=== PATIENT | female | born 1975 | race Caucasian/White ===

== ENCOUNTER 2017-07-20 17:06 | Inpatient (IN) | payer MEDICAID ==
--- NOTE | 2017-07-20 17:48 | CPEKG ---
Heart Rate: 81 RR Interval: 741 P-R Interval: 148 QRSD Interval: 80 QT Interval: 368 QTC Interval: 428 P [place]: 48 QRS [place]: 35 T Wave [place]: 35 EKG Severity - NORMAL ECG - EKG Impression: SINUS RHYTHM Electronically Signed By: Willow Barnett 20-Jul-2017 21:26:04
[2017-07-20 18:03] LABS: PLATELET COUNT 295 10^3/uL (150-400)
--- NOTE | 2017-07-20 18:11 | EDPHY ---
H & P Stated Complaint: L arm tingling Time Seen by Provider: 07/20/17 17:31 HPI/ROS: CHIEF COMPLAINT: Left-sided numbness Limitations: history through ; pt unable to recall recent events HISTORY OF PRESENT ILLNESS: 42-year-old female with recent cerebral aneurysm repair presents with left-sided numbness. 2 months ago she presented with a generalized seizure and elevated BP 219/116 during 3rd trimester of , thought secondary to eclampsia. She had emergency . Afterward C- section, CT scan of the brain demonstrated subarachnoid hemorrhage and she was diagnosed with a cerebral aneurysm. She underwent operative repair and coiling. She was in a coma for 4-5 weeks after the surgery, according to her . She just came home from [facility] 2 days ago. She has ongoing ataxia and difficulty speaking. Today, she mentioned to her that she had left-sided arm tingling. She was sent to the emergency department for evaluation by her neurosurgery team. She now complains of tingling in her left arm and left leg. She does not know when the symptoms started. No other neuro sx. Denies headache or neck pain. REVIEW OF SYSTEMS: complete 10 point ROS negative except at noted in the HPI - Personal History LMP (Females 10-55): Unknown Current Tetanus/Diphtheria Vaccine: Yes Current Tetanus Diphtheria and Acellular Pertussis (TDAP): Yes - Medical/Surgical History Hx Asthma: No Hx Chronic Respiratory Disease: No Hx Diabetes: No Hx Cardiac Disease: No Hx Renal Disease: No Hx Cirrhosis: No Hx Alcoholism: No Hx HIV/AIDS: No Hx Splenectomy or Spleen Trauma: No Other PMH: Subarachnoid hemorrhage. - Social History Smoking Status: Current every day smoker Drug Use: Other (Methamphetamine abuse) Additional Social History: - Physical Exam Exam: General Appearance: Alert, pleasant Eyes: Pupils equal and round, no conjunctival pallor or injection ENT, Mouth: Mucous membranes moist Neck: Normal inspection Respiratory: Lungs are clear to auscultation Cardiovascular: Regular rate and rhythm Gastrointestinal: Abdomen is soft and nontender, areas of ecchymosis on the lower abdomen Neurological: Alert, oriented, cranial nerves II through XII intact, motor 5/5 , decreased sensation to light touch of the entire left upper extremity except the hand and the left lower extremity, gait not assessed Skin: Warm and dry Extremities: Normal inspection Psychiatric: Tangential thought process Constitutional: Initial Vital Signs Temperature (C) 36.5 C 07/20/17 17:13 Heart Rate 84 07/20/17 17:13 Respiratory Rate 16 07/20/17 17:13 Blood Pressure 122/84 H 07/20/17 17:13 O2 Sat (%) 99 07/20/17 17:13 O2 Delivery Mode Room Air Allergies/Adverse Reactions: No Known Allergies Allergy (Unverified 07/20/17 17:12) Home Medications: Medication Instructions Recorded Acetaminophen [Tylenol 325mg (*)] 650 mg PO Q4H PRN 07/20/17 Amantadine HCl [Amantadine] 100 mg PO BID@06,12 07/20/17 Aspirin EC [Aspirin EC 81 mg (*)] 81 mg PO DAILY 07/20/17 Atorvastatin Calcium [Lipitor 40 40 mg PO DAILY 07/20/17 mg (*)] Clopidogrel Bisulfate [Plavix (*)] 37.5 mg PO EVERY OTHER DAY 07/20/17 Docusate Sodium [Colace 100 MG (*)] 100 mg PO TID 07/20/17 Insulin Detemir [Levemir Flextouch] 20 unit SQ DAILY 07/20/17 Lacosamide [Vimpat 50 mg (*)] 50 mg PO BID 07/20/17 Melatonin [Melatonin 3 MG (*)] 3 mg PO HS 07/20/17 Nicotine [Nicoderm Cq 21 mg (*)] 21 mg TD DAILY 07/20/17 Propranolol HCl [Inderal 10mg (*)] 10 mg PO TID 07/20/17 QUEtiapine FUMARATE [Seroquel 100 100 mg PO BID 07/20/17 mg (*)] cloNIDine HCL [Clonidine HCl] 0.3 mg PO BID 07/20/17 glipiZIDE [Glipizide] 5 mg PO BIDMEAL 07/20/17 oxyCODONE IR [Oxycodone Ir (*)] 5 mg PO Q12H PRN 07/20/17 traZODone [traZODone 150MG (*)] 150 mg PO HS 07/20/17 Medical Decision Making - Diagnostics Imaging Results: Head CT 07/20/17 17:33 Impression: 1. Mild ventriculomegaly, of uncertain chronicity. If previous imaging can be made available, I would be happy to compare it. 2. Right frontal encephalomalacia, likely related to previous ventriculostomy catheter but nonspecific. 3. Aneurysm coils in the region of the basilar artery. Findings discussed with Willow Barnett M.D., on July 20, 2017 at 1914. Head CTA 07/20/17 18:12 Impression: 1. No acute vascular findings. 2. Additional findings as above. Stenoses are calculated using [place] Symptomatic Carotid Endarterectomy Trial (NASCET) criteria. Findings discussed with Dr. Willow Barnett on July 20, 2017 at 1914 hours. ED Course/Re-evaluation: This patient presents with left-sided numbness after recent cerebral aneurysm repair, concerning for CVA. On aspirin and Plavix. She is not a tPA candidate because of recent intracranial surgery. CT/CTA scan of the brain ordered. Old records ordered from [facility]. CT/CTA unremarkable, results discussed with the patient and her . Serial neuro exams unchanged. Medical records from [facility] reviewed. Dr. Pearce patient's neurosurgeon at [facility] paged. d/w Dr. Islas, suggests MRI. Will admit for observation overnight. Hospitalist service consulted for admission. d/w radiologist, unclear if MRI ok, given intracranial clips/coils. Pt seen by Dr. Jose, neuro sx resolved, will obs for now, consider MRI in am. This pt utilized 35 minutes of critical care time exclusive of unbundled procedures. Time spent in direct patient care, reassessments, consultations, interpretation/review of labs/radiologic studies. Organ at risk: brain Differential Diagnosis: Altered mental status including but not limited to hypoglycemia, infectious process, electrolyte abnormality, head injury, CVA, and intoxicants. - Data Points Laboratory Results: Laboratory Results 07/20/17 17:52 07/20/17 17:52 Medications Given: Discontinued Medications Acetaminophen (Tylenol) 650 mg PO Q4HRS PRN PRN Reason: Pain, Mild/Fever, Can Take PO Stop: 01/16/18 20:54 Last Admin: 07/21/17 16:57 Dose: 650 mg Al Hydroxide/Mg Hydroxide (Maalox Susp) 30 ml PO ONCE ONE Stop: 07/20/17 20:17 Last Admin: 07/20/17 20:22 Dose: 30 ml Amantadine HCl (Symmetrel) 100 mg PO BID@06,12 [facility] Stop: 01/17/18 05:59 Last Admin: 07/22/17 05:46 Dose: 100 mg Aspirin Buffered (Aspirin Ec) 81 mg PO DAILY [facility] Stop: 01/17/18 08:59 Last Admin: 07/22/17 09:14 Dose: 81 mg Atorvastatin Calcium (Lipitor) 40 mg PO DAILY [facility] Stop: 01/17/18 08:59 Last Admin: 07/22/17 09:14 Dose: 40 mg Calcium Carbonate (Tums) 500 mg PO EDNOW ONE Stop: 07/20/17 19:51 Last Admin: 07/20/17 19:57 Dose: 500 mg Clonidine (Catapres) 0.3 mg PO BID [facility] Stop: 01/17/18 08:59 Last Admin: 07/22/17 09:14 Dose: 0.3 mg Clopidogrel Bisulfate (Plavix) 37.5 mg PO EVERY OTHER DAY [facility] Stop: 01/18/18 08:59 Last Admin: 07/22/17 09:13 Dose: 37.5 mg Docusate Sodium (Colace) 100 mg PO TID [facility] Stop: 01/16/18 21:59 Last Admin: 07/22/17 09:15 Dose: 100 mg Glipizide (Glucotrol) 5 mg PO BIDMEAL [facility] Stop: 01/17/18 17:59 Last Admin: 07/22/17 09:14 Dose: 5 mg Hyoscyamine Sulfate (Levsin, Hyomax-Sl) 0.25 mg PO ONCE ONE Stop: 07/20/17 20:17 Last Admin: 07/20/17 20:21 Dose: 0.25 mg Insulin Human Lispro (Humalog Lispro) 0 unit SC TIDMEAL [facility] PRN Reason: Protocol Stop: 01/17/18 07:59 Last Admin: 07/22/17 09:22 Dose: Not Given Lacosamide (Vimpat) 50 mg PO BID [facility] Stop: 01/16/18 21:29 Last Admin: 07/22/17 09:15 Dose: 50 mg Lidocaine (Lidocaine 2% Viscous) 15 ml PO ONCE ONE Stop: 07/20/17 20:17 Last Admin: 07/20/17 20:22 Dose: 15 ml Melatonin (Melatonin) 3 mg PO HS [facility] Stop: 01/16/18 20:59 Last Admin: 07/21/17 21:49 Dose: 3 mg Miscellaneous Medication (Insulin Detemir [Levemir Flextouch]) 20 unit SC DAILY [facility] Stop: 01/17/18 08:59 Last Admin: 07/22/17 09:20 Dose: 20 unit Nicotine (Nicoderm Cq) 21 mg TD DAILY [facility] Stop: 01/17/18 08:59 Last Admin: 07/22/17 09:15 Dose: 21 mg Ondansetron HCl (Zofran Odt) 4 mg PO EDNOW ONE Stop: 07/20/17 19:52 Last Admin: 07/20/17 22:51 Dose: Not Given Oxycodone HCl (Oxycodone Ir) 5 mg PO Q12H PRN PRN Reason: Pain, Breakthrough Stop: 07/30/17 21:15 Last Admin: 07/22/17 09:40 Dose: 5 mg Polyethylene Glycol (Miralax) 17 gm PO DAILY PRN; Protocol PRN Reason: Constipation Stop: 01/18/18 08:20 Last Admin: 07/22/17 09:40 Dose: 17 gm Propranolol HCl (Inderal) 10 mg PO TID [facility] Stop: 01/16/18 21:59 Last Admin: 07/22/17 09:14 Dose: 10 mg Quetiapine Fumarate (Seroquel) 100 mg PO BID [facility] Stop: 01/17/18 08:59 Last Admin: 07/22/17 09:14 Dose: 100 mg Senna/Docusate Sodium (Senokot-S) 1 - 2 tab PO BID [facility] PRN Reason: Protocol Stop: 01/18/18 08:59 Last Admin: 07/22/17 09:39 Dose: 2 tab Trazodone HCl (Trazodone) 150 mg PO HS [facility] Stop: 01/16/18 20:59 Last Admin: 07/21/17 21:48 Dose: 150 mg Departure - Departure Disposition: Home, Routine, Self-Care Clinical Impression: Left sided numbness Condition: Good
[2017-07-20] MEDS ORDERED: IOPAMIDOL (ISOVUE 370) 100 ML BTL IV ONE (18:30)
[2017-07-20] MEDS ORDERED: CALCIUM CARBONATE 500 MG CHEWABLE TAB PO ONE ×2 (19:46→19:50)
[2017-07-20] MEDS ORDERED: ONDANSETRON DISINTEGRATING 4 MG TAB PO ONE (19:51)
[2017-07-20] MEDS ORDERED: MAG HYDROX/AL HYDROX/SIMETH 30 ML UDCUP PO ONE (20:16)
[2017-07-20] MEDS ORDERED: LIDOCAINE 2% VISCOUS 15 ML UDCUP PO ONE (20:16)
[2017-07-20] MEDS ORDERED: HYOSCYAMINE SULFATE 0.125 MG TAB PO ONE (20:16)
[2017-07-20] MEDS ORDERED: ONDANSETRON 4 MG/2 ML VIAL IVP PRN (20:55)
[2017-07-20] MEDS ORDERED: ONDANSETRON DISINTEGRATING 4 MG TAB PO PRN (20:55)
[2017-07-20] MEDS ORDERED: D50W 25 GM/50 ML SYR IVP PRN (21:16)
--- NOTE | 2017-07-20 21:52 | GHP ---
[f rep st] HISTORY AND PHYSICAL DATE OF ADMISSION: 07/20/2017 CHIEF COMPLAINT: Left-sided numbness. HISTORY OF PRESENT ILLNESS: This is a 42-year-old female, with a very complicated recent past medica l history, who presents with left-sided numbness. History from her is very inconsistent and difficul t. Her has been present and provides somewhat of a better history. When I am seeing her, tammy harpreet did not initially remember complaining of numbness, though that was her chief complaint to the ED. She tells me that she has some left eye vision problems that started yesterday. In reviewing her re cords, these problems have been persistent for some time, recommendation had been to see an ophthalmo logist. Her history began in May of this year. She was , was found to have tonic-clonic seizure at home and she was combative. The assumption was that she had eclampsia, thus she underwent an emerge nt . After her , she was taken to CT scanner, which showed extensive subarachnoid hemorrhage throughout both cerebral hemispheres and cisterns with hydrocephalus. At that point, she was transferred to the [facility]. She was hospitalized there for approximately 2 months . 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 This was embolized u sing a PulseRider device and coils on 05/20/2017. They recommended aspirin 81 mg for life and Plavix 37.5 mg every other day for about 6 months. Her course was complicated by significant encephalopath y as well as delirium. She had a questionable history of bipolar disorder. This had improved though , discharge summary notes that most of her statements are confabulations. She had been treated for h igh blood pressure as well. Her goal is 90-160. She had been placed on Vimpat. Recommendation was to follow up with Neurology as an outpatient. Notably, her EEG had shown no epileptiform discharges. During her hospitalization, she had a trach and PEG placed. These have been removed and she had be en on a regular diet since 07/04. She did have hydrocephalus as well as cerebral edema and she requi red a CSF diversion with a ventriculostomy. She was discharged 2 days prior to her presentation here to home with home care. PAST MEDICAL/SURGICAL HISTORY: 1. 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 2. Hypertension. 3. Seizure disorder. 4. Diabetes mellitus. 5. History of a trach and PEG, now removed. 6. Tobacco abuse. 7. Polycystic ovarian syndrome. 8. Hydrocephalus and cerebral edema. 9. Cerebral vasospasm. 10. Reported heart block early in her ICU stay. 11. Encephalopathy with history of bipolar disorder. MEDICATIONS: Please see medication reconciliation. ALLERGIES: No known drug allergies. FAMILY HISTORY: Reviewed and noncontributory. SOCIAL HISTORY: She is . She is accompanied by her . REVIEW OF SYSTEMS: A 10-point review of systems is conducted and is negative, except per HPI. PHYSICAL EXAMINATION: VITAL SIGNS: Blood pressure 101/67, heart rate 76, respiration rate 15, satur ating 99% on room air. Temperature 36.5. GENERAL: The patient is a pleasant female, who appears so mewhat anxious, sitting in her room. HEENT: Multiple scalp incisions. She has some sutures. Much of her hair has been removed. CARDIOVASCULAR: A regular rate and rhythm. No murmurs, rubs, or gall ops. PULMONARY: Lungs clear to auscultation bilaterally. ABDOMEN: Soft, nontender, nondistended. SKIN: No rash. : No Jackson. NEUROLOGIC: Probably alert and oriented x3, though she clearly has some difficulty with recent history. Cranial nerves 2-12 appear to be intact, though she is complai yeny of some subjective blurriness in her left eye. Motor is intact in her upper and lower extremiti es. Sensation to light touch is intact in her upper and lower extremities. PSYCHIATRIC: Mildly anx ious-appearing. LABORATORY: CBC is normal. Basic metabolic panel is normal. Troponin is negative. DATA: 1. I discussed this with Dr. Barnett. Will admit to med/surg on the neurologic floor. 2. I reviewed her head and neck CT angiogram. These both showed no acute vascular findings. 3. I reviewed her head CT scan. This shows mild ventriculomegaly, right frontal encephalomalacia, a nd aneurysm coils in the region of the basilar artery. 4. EKG, which I personally viewed and interpreted, shows sinus rhythm. IMPRESSION AND PLAN: 1. Neurologic complaints: Her initial complaint of left-sided numbness seems to have resolved. She complains of some left eye vision problems, which are reported in her prolonged stay at the [facility], unclear what to make of these. Could consider an Ophthalmology evaluation. Unclear if this need s to happen as an inpatient. Agree with MRI; however, we are unable to determine whether her coils a re MRI compatible at this time. We will need to speak with her Neurosurgery team tomorrow to further delineate. Apparently, the neurosurgeon on-call at the [place] tomorrow is the one who personall y performed the procedure. The Neurosurgery number is [phone]. I placed a neurology consult as well. Consider stroke versus seizure activity. She is clearly not a tPA candidate given recent sub arachnoid hemorrhage. Will defer to Neurology on additional workup. Overall, history is very diffic ult to gather and seems somewhat unreliable. 2. Seizure disorder: Continue her Vimpat when this is reconciled. 3. Encephalopathy: She had been started on trazodone and amantadine to normalize her sleep-wake cyc le. Will continue these. 4. Hypertension: Will continue her propranolol with a goal systolic blood pressure of 90-160. 5. Diabetes mellitus: Will continue her home insulin and provide her with sliding scale insulin. /[id number]/MODL
[2017-07-20] MEDS: MELATONIN 3 MG TAB PO SCH (23:42)
[2017-07-20] MEDS: oxyCODONE IR 5 MG TAB PO PRN (23:43)
[2017-07-20] MEDS: PROPRANOLOL HCL 10 MG TAB PO SCH (23:46)
[2017-07-20] MEDS: DOCUSATE SODIUM 100 MG CAP PO SCH (23:46)
[2017-07-20] MEDS: LACOSAMIDE 50 MG TAB PO SCH (23:46)
[2017-07-21 05:30] LABS: PLATELET COUNT 337 10^3/uL (150-400)
[2017-07-21] MEDS: AMANTADINE HCL 100 MG CAP PO SCH ×2 (05:48→12:34)
[2017-07-21] MEDS: ACETAMINOPHEN 325 MG TAB PO PRN ×2 (06:20→16:57)
[2017-07-21] MEDS: ATORVASTATIN CALCIUM 40 MG TAB PO SCH (08:35)
[2017-07-21] MEDS: QUEtiapine FUMARATE 100 MG TAB PO SCH ×2 (08:35→21:22)
[2017-07-21] MEDS: PROPRANOLOL HCL 10 MG TAB PO SCH ×3 (08:35→21:24)
[2017-07-21] MEDS: oxyCODONE IR 5 MG TAB PO PRN ×2 (08:36→21:48)
[2017-07-21] MEDS: ASPIRIN EC 81 MG TAB PO SCH (08:36)
[2017-07-21] MEDS: DOCUSATE SODIUM 100 MG CAP PO SCH ×3 (08:36→21:22)
[2017-07-21] MEDS: INSULIN LISPRO 100 UNIT/ML SC SCH ×3 (08:37→17:08)
[2017-07-21] MEDS: NICOTINE 21 MG/24 HR PATCH TD SCH (08:38)
[2017-07-21] MEDS: LACOSAMIDE 50 MG TAB PO SCH ×2 (08:50→21:23)
[2017-07-21] MEDS ORDERED: CLONIDINE HCL 0.3 MG PO SCH (09:00)
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
--- NOTE | 2017-07-21 10:10 | ASMTCMCOM ---
CM Note CM Note Notes: Chart reviewed. 42 year old female admitted via ed with complaints of left arm numbness. Just dc'd to home from [place] after an emergency C- section for pre-eclampsia the discovered to have a ruptured cerebral aneurysm coil repair, coma, s/p tach, peg tube. Yesterday was her first [facility] visit and RN was concerned over complaints of arm numbness. Work up so far has been negative. Therapies pending. Referral placed to [facility] via [facility]scripts. Plan: likely home with resumption of HHC Date Signed: 07/21/2017 10:09 AM Electronically Signed By:Cheyenne Davis RN
--- NOTE | 2017-07-21 11:27 | HOSPPROG ---
Hospitalist Progress Note Assessment/Plan: * New left numb/weak -d/w Dr. Munguia at (neurosurgery) who knows her well and placed current device -it is MRI compatible - they never did MRI - he thinks MRI brain would be beneficial -re-call Dr. 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 part of her cognitive dysfunction syndrome * Hydrocephalus s/p ventric * Cerebral vasospasm - resolved * s/p trach/PEG - now removed * Tobacco dependence -nicotine patch * DM -insulin + glipizide * HTN -propranolol + clonidine Subjective: Left sided numb/tingling - new Objective: Vital Signs Temp Pulse Resp BP Pulse Ox 36.6 C 97 16 147/91 H 96 07/21/17 07:30 07/21/17 07:30 07/21/17 07:30 07/21/17 07:30 07/21/17 07:30 Laboratory Results 07/21/17 04:18 07/21/17 04:18 07/20/17 07/21/17 07/22/17 05:59 05:59 05:59 Intake Total 350 Balance 350 Case d/w Dr. Art and Dr. 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
--- NOTE | 2017-07-21 15:15 | PDMN ---
Medical Necessity Medical necessity: Change to IP, as of 07/21/17, per MD; los >2 mn for ongoing management of L-sided numbness/tingling/weakness & encephalopathy vs post- psychosis; admit for further workup/monitoring, Neuro consult & therapies ; hx basilar artery aneurysm s/p embolization/coil on AC, SAH, seizures, HTN, diabetes; per H&P & order 07/21/17
[2017-07-21] MEDS: glipiZIDE 5 MG TAB PO SCH (17:08)
[2017-07-21] MEDS ORDERED: MELATONIN 3 MG TAB PO SCH (21:00)
[2017-07-21] MEDS: MELATONIN 3 MG TAB PO SCH (21:49)
[2017-07-22] MEDS: AMANTADINE HCL 100 MG CAP PO SCH (05:46)
--- NOTE | 2017-07-22 08:17 | NEUROPROG ---
Assessment: At this point, the exact explanation for symptoms is uncertain. Total unit time of 15 min. The feeling is that she is safe for discharge. She already has an ophthalmology appointment for next week. She should follow up with her neurosurgeon and she should follow up with Neurology at the [facility] to keep her care consistent. Subjective: Patient reports that she is not having any more symptoms of numbness on the left side. She continues have the complaint of the left eye being blurred but this is going to be evaluated next week by Ophthalmology. Objective: Vital Signs Temp Pulse Resp BP Pulse Ox 36.8 C 74 17 98/61 L 96 07/22/17 04:00 07/22/17 04:00 07/22/17 04:00 07/22/17 04:00 07/22/17 04:00 Laboratory Results 07/21/17 04:18 07/21/17 04:18 07/21/17 07/22/17 07/23/17 05:59 05:59 05:59 Intake Total 350 1000 Balance 350 1000 I do not detect new focal weakness or numbness. She just woke up but is able to communicate effectively and seems about back to her baseline and her ' s feeling seems to be that she is about back to her baseline. Brain MRI did not show any evidence of an acute stroke. Allergies/Adverse Reactions: No Known Allergies Allergy (Unverified 07/20/17 17:12)
[2017-07-22] MEDS ORDERED: POLYETHYLENE GLYCOL 3350 17 GM PKT PO PRN (08:21)
[2017-07-22] MEDS ORDERED: BISACODYL 10 MG SUPP PR PRN (08:21)
[2017-07-22] MEDS ORDERED: LACTULOSE 20 GM/30 ML UDCUP PO PRN (08:21)
[2017-07-22] MEDS ORDERED: MAGNESIUM HYDROXIDE 30 ML UDCUP PO PRN (08:21)
[2017-07-22 08:24] VITALS: BP 117/85
[2017-07-22] MEDS ORDERED: SENNOSIDES/DOCUSATE SODIUM TAB PO SCH (09:00)
[2017-07-22] MEDS ORDERED: CLOPIDOGREL BISULFATE 75 MG TAB PO SCH (09:00)
[2017-07-22] MEDS: PROPRANOLOL HCL 10 MG TAB PO SCH (09:14)
[2017-07-22] MEDS: glipiZIDE 5 MG TAB PO SCH (09:14)
[2017-07-22] MEDS: QUEtiapine FUMARATE 100 MG TAB PO SCH (09:14)
[2017-07-22] MEDS: ATORVASTATIN CALCIUM 40 MG TAB PO SCH (09:14)
[2017-07-22] MEDS: ASPIRIN EC 81 MG TAB PO SCH (09:14)
[2017-07-22] MEDS: LACOSAMIDE 50 MG TAB PO SCH (09:15)
[2017-07-22] MEDS: NICOTINE 21 MG/24 HR PATCH TD SCH (09:15)
[2017-07-22] MEDS: DOCUSATE SODIUM 100 MG CAP PO SCH (09:15)
[2017-07-22] MEDS: INSULIN LISPRO 100 UNIT/ML SC SCH (09:22)
[2017-07-22] MEDS: oxyCODONE IR 5 MG TAB PO PRN (09:40)
--- NOTE | 2017-07-22 09:53 | PDIAF ---
- Diagnosis Diagnosis: left sided numbness Code Status: Full Code - Medication Management Discharge Medications: Medications to Continue on Transfer Acetaminophen [Tylenol 325mg (*)] 650 mg PO Q4H PRN 07/20/17 [Last Taken Unknown ] Amantadine HCl [Amantadine] 100 mg PO BID@06,12 07/20/17 [Last Taken 07/20/17] Aspirin EC [Aspirin EC 81 mg (*)] 81 mg PO DAILY 07/20/17 [Last Taken 07/20/17] Atorvastatin Calcium [Lipitor 40 mg (*)] 40 mg PO DAILY 07/20/17 [Last Taken 12/28] Clopidogrel Bisulfate [Plavix (*)] 37.5 mg PO EVERY OTHER DAY 07/20/17 [Last Taken 07/20/17] Docusate Sodium [Colace 100 MG (*)] 100 mg PO TID 07/20/17 [Last Taken 07/20/17] Insulin Detemir [Levemir Flextouch] 20 unit SQ DAILY 07/20/17 [Last Taken ] Lacosamide [Vimpat 50 mg (*)] 50 mg PO BID 07/20/17 [Last Taken 07/20/17] Melatonin [Melatonin 3 MG (*)] 3 mg PO HS 07/20/17 [Last Taken 07/19/17] Nicotine [Nicoderm Cq 21 mg (*)] 21 mg TD DAILY 07/20/17 [Last Taken 07/19/17] Propranolol HCl [Inderal 10mg (*)] 10 mg PO TID 07/20/17 [Last Taken 07/20/17] QUEtiapine FUMARATE [Seroquel 100 mg (*)] 100 mg PO BID 07/20/17 [Last Taken 12/28] cloNIDine HCL [Clonidine HCl] 0.3 mg PO BID 07/20/17 [Last Taken 07/20/17] glipiZIDE [Glipizide] 5 mg PO BIDMEAL 07/20/17 [Last Taken 07/20/17] oxyCODONE IR [Oxycodone Ir (*)] 5 mg PO Q12H PRN 07/20/17 [Last Taken 07/19/17] traZODone [traZODone 150MG (*)] 150 mg PO HS 07/20/17 [Last Taken 07/19/17] Discharge Medications: Refer to the Discharge Home Medication list for PRN reason. - Orders Services needed: Home Care, Physical Therapy, Occupational Therapy, Speech Language Pathologist Home Care Face to Face: I certify that this patient was under my care and that I had the required [id number] encounter meeting the encounter requirements on the discharge day. My findings support the fact that the patient is homebound as defined in Home Care Face to Face Continued: CMS Chapter 7 Medicare Benefits Manual 30.1.1 , The condition of the patient is such that there exists a normal inability to leave home and consequently, leaving home would require a considerable and taxing effort. Diet Recommendation: no restrictions on diet - Follow Up Care Current Providers and Referrals: Toni Nieves MD [Primary Care Provider] - As per Instructions
--- NOTE | 2017-07-22 10:24 | GDS ---
[f rep st] DISCHARGE SUMMARY DISCHARGE DIAGNOSIS: 1. New left-sided numbness and weakness of unclear etiology. 2. Basal artery aneurysm status post embolization and coil. 3. Subarachnoid hemorrhage due to aneurysm rupture. 4. Seizure. 5. Vision change. 6. Cognitive dysfunction. 7. Encephalopathy versus psychosis. 8. Confabulation. 9. Hydrocephalus status post ventriculostomy. 10. Cerebral vasospasm, resolved. 11. Status post trach and percutaneous endoscopic gastrostomy. 12. Tobacco dependence. 13. Diabetes. 14. Hypertension. HISTORY: This is a 42-year-old female who unfortunately ruptured a brain aneurysm while she was preg nant and delivered her child successfully. However, subsequently had a 2 month hospitalization at [facility] where she had a coil embolization of a basilar artery aneurysm as well as prolonged recovery from a subarachnoid hemorrhage developing a seizure disorder, vision change, cognitive dysfu nction, confabulation, psychosis, encephalopathy, hydrocephalus requiring ventriculostomy, cerebral vasospasm, and a trach and PEG that have both been removed. She was discharged from [facility] to home health, and the home health nurse came out and thought the patient complained o f a new left-sided numbness and weakness and she was sent immediately back to the emergency room. The patient is quite confabulatory at baseline and has very poor short-term memory, so it was very di fficult to get a history regarding this left-sided numbness and weakness. Upon arriving to the [facility], she no longer had this complaint. It was unclear what her baseline was. She seemed to be quite s uggestible and once we asked her specifically about a left-sided numbness and weakness, then she woul d confabulate an entire history regarding this. She was seen in consultation with Neurology. I spoke with Dr. Pearce who is her neurosurgeon at [facility], who knows her very well. He is e neurosurgeon in charge of her care and all of the devices in her brain are MRI compatible. She nev er had an MRI at [facility]. He did think that would be beneficial. We pursued MRI of the b rain last evening and nothing acute was found. She has an outpatient ophthalmology appointment sched ed for her vision changes which were present during her hospitalization at [facility]. Th ere was no new bleeding. She had a CT angiogram of the head and neck which showed patency of all ves sels and she will continue on aspirin and Plavix. We will continue Speech Therapy. Occupational The rapy and Physical Therapy with Home Health upon discharge. She remains on a high dose of Seroquel, however, per psychiatry notes from [facility] the y did not think she had bipolar and instead think there is an element of psychosis versus encephalopathy due to her aneurysm rupture. They eventually want antipsychotics weaned off. She is stable on her current dose and this will be an outpatient project with her outpatient providers. DISCHARGE MEDICATIONS: Please see computerized record for full detailed list. New medications: None. DISCHARGE INSTRUCTIONS: 1. Follow up with primary care. 2. Follow up with Neurosurgery at [facility]. 3. Greater than 30 minutes' time was spent arranging this discharge. Patient seen and examined by me on the day of discharge. /[id number]/MODL
--- NOTE | 2017-07-26 13:41 | ASDISCHSUM ---
Discharge Information Plan Status: Medically Cleared to Leave: Discharge Date:07/22/2017 11:34 AM CM D/C Disposition: ADT D/C Disposition:Home Health Service Projected Discharge Date:07/21/2017 11:00 AM Transportation at D/C: Discharge Delay Reason: Follow-Up Date:07/21/2017 11:00 AM Discharge Slot: Final Diagnosis: Placement Information Referral Type:*Home Health Care Services Referral ID:[id number] Provider Name:[facility] Address 1:[address] Phone Number: Address 2: Fax Number: [facility]:Jessica Selection Factors: State:[place] Patient Contact Information Contact Name:ROSITA Relationship: Address:[address] Work Phone: [facility]: [facility]/Zip Code:[place] [address] Email: Financial Information Financial Class:Medicaid Primary Plan Desc:MEDICAID HEALTH [employer] Primary Plan Number:[id number] Secondary Plan Desc: Secondary Plan Number: Assessment Information [employer] CM Progress Note CM Note CM Note Notes: Chart reviewed. 42 year old female admitted via ed with complaints of left arm numbness. Just dc'd to home from [place] after an emergency C- section for pre-eclampsia the discovered to have a ruptured cerebral aneurysm coil repair, coma, s/p tach, peg tube. Yesterday was her first [facility] visit and RN was concerned over complaints of arm numbness. Work up so far has been negative. Therapies pending. [facility] Plan: likely home with resumption of [facility] Date Signed: 07/21/2017 10:09 AM Electronically Signed By:Cheyenne Davis RN Case Management Discharge Plan Note Case Management Discharge Discharge Order Complete? Answers: Yes Patient to Obtain Answers: Independently Medications Transportation Arranged Answers: Family/Friends Faxed Final Orders Answers: Yes Discharge Comments Notes: Final orders faxed. [facility] notified. Date Signed: 07/22/2017 10:15 AM Electronically Signed By:Ngozi Henriquez LCSW Intervention Information
== END 2017-07-22 11:34 | disposition home health service (06) | DRG 58 ==
LOC: OBSVTOIN 20:55 → F3N 22:00
PROVIDERS: ADMIT Student in an Organized Health Care Education/Training Program; ATTEND Student in an Organized Health Care Education/Training Program
DX: R20.0 Anesthesia of skin (principal); G93.40 Encephalopathy, unspecified; M62.81 Muscle weakness (generalized); G40.909 Epilepsy, unspecified, not intractable, without status epilepticus; H53.8 Other visual disturbances; F09 Unspecified mental disorder due to known physiological condition; F53 Mental and behavioral disorders associated with the puerperium, not elsewhere classified; I10 Essential (primary) hypertension; E11.9 Type 2 diabetes mellitus without complications; F17.200 Nicotine dependence, unspecified, uncomplicated; Z98.2 Presence of cerebrospinal fluid drainage device
CPT/HCPCS: 92523-GN; 97161-GP; 97166-GO; 97535-GO; G0378; J1815; Q9967